=== PATIENT | female | born 1960 | race Caucasian/White ===

== ENCOUNTER 2017-09-20 06:00 | Day surgery (SDC) | payer OTHER ==
[~2017-09-20] VITALS: Ht 167.6 cm; Wt 70.8 kg
[~2017-09-20 06:00] MED LIST: ATENOLOL50 MG PO; CALCIUM500 M1 PO; IBUPROFEN800 MG PO; LEVOTHYROXINE75 MCG PO; MULTIVITAMINS1 EAC7 PO; NORCO 5-325 TA1 EACH PO
--- NOTE | 2017-09-20 09:29 | NUR ---
09/20/17 0929 Millicent Kong 0914 RESP EVEN AND UNLABORED. PT ASLEEP, VSS. 0922 PT WOKE UP REORIENTED TO PACU. DENINES NAUSEA AND PAIN.
--- NOTE | 2017-09-20 10:07 | NUR ---
LE 0950: PT RETURNED FROM RECOVERY WITH RN. PT DROWSY BUT RESPONDS TO VOICE. PT C/O BEING "SLIGHTLY NAUSEATED". PT C/O CRAMPING IN HER LOWER ABD AND DISCOMFORT FROM FISHMAN CATH. SRAVANTHI DC'D PER DR. AGUILA PROTOCOL. PT GIVEN ZOFRAN. WATER AT BEDSIDE. IN ROOM. NO FURTHER NEEDS AT THIS TIME, CALL LIGHT IN REACH.
--- NOTE | 2017-09-20 13:44 | NUR ---
LE 1240: JELLO DELIVERED FROM DIETARY. PT SITTING UP IN BED EATING AND DENIES NAUSEA. LE 1330: PT UP TO BR W/RN STANDBY. PT AMBULATES WELL AND DENIES DIZZINESS. PT VOIDS 150 ML DARK YELLOW URINE AND OOZING IS NOTED ONTO GOWN. UMBILICUS SITE APPEARS TO BE DRAINING AND IS REINFORCED W/GAUZE AND TAPE. PT DENIES NAUSEA AND STATES PAIN REMAINS 4/10. PT BACK IN BED AND MORE ICED WATER GIVEN. PT REPORTS "I WANT TO REST".
--- NOTE | 2017-09-20 14:22 | NUR ---
1414 UP TO BR VOIDS QS. AMB WELL. SMALL AMOUT BLEEDING PANTIES AND PAD PLACED. WANTS TO GET DRESSED.
--- NOTE | 2017-10-01 09:57 | OR ---
[facility] [address] [place], [place] [address] Signed DATE OF OPERATION: 09/20/2017 SURGEON: Radha Hanson MD BALANCE STAFF INSPECTOR: Dayron Whitten MD PREOPERATIVE DIAGNOSIS: Postmenopausal bleeding, recurrent simple endometrial hyperplasia. POSTOPERATIVE DIAGNOSIS: Postmenopausal bleeding, recurrent simple endometrial hyperplasia. Pending pathology. PROCEDURE: Total laparoscopic hysterectomy with bilateral salpingectomy and cystoscopy. ANESTHESIA: General ET. ESTIMATED BLOOD LOSS: 50 mL. DRAINS: Mccoy catheter. INDICATIONS AND FINDINGS: The patient is a 57-year-old female who has not had any bleeding for over two years when she presented with abnormal bleeding in the spring of this year. EMB was consistent with simple endometrial hyperplasia. She underwent treatment with progestins for three months with followup biopsy and ultrasound which were both negative and medications were then stopped. However, she had another episode of abnormal bleeding just before gi and again her EMB revealed simple hyperplasia. She was counseled during her options and she decided that she would prefer to undergo hysterectomy rather than repeat medication treatment. At the time of surgery, exam under anesthesia revealed a normal size uterus with no adnexal masses. At the time of laparoscopy, the pelvis was normal. DESCRIPTION OF PROCEDURE: The patient was prepped and draped in the dorsal lithotomy position. A weighted speculum was placed in the vagina and the anterior lip of the cervix was visualized and grasped Electronically Signed By: RADHA HANSON MD 10/01/17 0957 PATIENT NAME: LAKSHMI DAVIDSON OPERATIVE REPORT DATE OF : 64 PHYSICIAN: RADHA HANSON MD REPORT #: [id number] REPORT IS CONFIDENTIAL AND NOT TO BE RELEASED WITHOUT AUTHORIZATION [facility] [address] [place], [place] [address] Signed with a single-tooth tenaculum. The cavity sounded to 8 cm. The endocervical canal was then dilated with some difficulty and the VCare was then able to be placed. The balloon was inflated and the tenaculum and speculum removed. The cup was fitted over the cervix and a locking cup was fitted into place as well. Attention was then directed to the abdomen. The infraumbilical area was injected with 0.5% Marcaine plain and an incision made with a knife. Each layer was then serially elevated and incised until the fascia was opened and identified. Sutures of 0 Vicryl placed on each side as stay sutures. The peritoneum was opened bluntly and a Brian cannula was placed and tied into place. Placing the scope confirmed proper positioning. CO2 was then introduced into the abdomen. Secondary ports were placed at the level just below the umbilicus and fairly far laterally. These areas were transilluminated and injected with Marcaine. An incision was made with a knife and the trocars placed under direct vision. The left-sided port was a 5 mm port and the right-sided port was initially a Veress needle followed by the expanding port which was a 10. Following this, the pelvis was visualized and the planned operation appeared appropriate. The LigaSure [place] device was then used to serially coagulate and divide the patient's left utero-ovarian pedicle, left tube, and left round ligament. Following this, the anterior leaf of the peritoneum was incised allowing the bladder to drop down off the anterior cervix. The peritoneum was taken down posteriorly as well. Following this, the uterine vessels were skeletonized and coagulated multiple times, then divided. Further dissection was done both posterior and anteriorly such that the cup could be identified. Following this, attention was directed to the patient's right side and the same procedure was completed. The right utero-ovarian pedicle, right tube and right round ligament were serially coagulated and divided. The anterior leaf of the peritoneum was incised allowing the bladder to fall off completely anteriorly. Further dissection was done posteriorly on the peritoneum as well. The uterine vessels were then skeletonized and coagulated multiple times and divided. Further dissection was done both posteriorly and anteriorly such that the cup was easily felt and the area clean. The area was irrigated and good hemostasis was noted. At this point, the decision was made to proceed with removal of the specimen. The DeliverCareRxision device was used to separate the specimen from the cuff. Following this, the specimen was grasped and the specimen was pulled out vaginally. The vagina was then packed with a lap tape and a glove to allow the pneumoperitoneum to reaccumulate. Gloves were changed. Attention directed above again and the area irrigated and inspected and good hemostasis was noted. The cuff was then closed using the Endo Stitch. This was begun on the patient's right uterosacral ligament, taking care to incorporate the vaginal mucosa with each bite both posteriorly as well as anteriorly and this was run to the patient's left side and then back to the center. The stitch did break just prior to meeting at the center. A second suture using the same material was then used coming from the right uterosacral ligament across and back to the center again to be sure that the cuff would remain closed and hemostatic. Following this, the patient's left tube was removed as was the right and these specimens were removed through the 10 port. Additional cautery was needed on the patient's left side to ensure hemostasis. The Electronically Signed By: RADHA HANSON MD 10/01/17 0957 PATIENT NAME: LAKSHMI DAVIDSON OPERATIVE REPORT DATE OF : 64 PHYSICIAN: RADHA HANSON MD REPORT #: [id number] REPORT IS CONFIDENTIAL AND NOT TO BE RELEASED WITHOUT AUTHORIZATION [facility] [address] [place], [place] [address] Signed abdomen was then again copiously irrigated and inspected and appeared to be hemostatic. The gas was turned off and the pressure decreased and again good hemostasis was noted. The procedure was done. The abdominal portion was then completed. The instruments were removed from the abdomen after allowing as much CO2 as possible to escape. The fascial incision of the umbilicus was reidentified and closed with a running suture of 0 Vicryl. The skin incisions were closed with subcuticular sutures of 3-0 Vicryl Rapide. Attention was directed below and the lap tape was removed from the vagina and the Mccoy catheter removed. Cystoscopy was done using the 30-degree scope. The patient had received IV fluorescein. The bladder was seen to be without any injury. Fluorescein-stained urine was seen to freely egress from both of the ureteral orifices. Cystoscopy was then completed. The bladder drained and the Mccoy catheter replaced. All sponge and needle counts were correct. She tolerated the procedure well and was taken to the recovery room in good condition. MD VIVIANA Watson/GUIL /[id number] cc: [facility] Dayron Whitten MD Electronically Signed By: RADHA HANSON MD 10/01/17 0957 PATIENT NAME: LAKSHMI DAVIDSON OPERATIVE REPORT DATE OF : 64 PHYSICIAN: RADHA HANSON MD REPORT #: [id number] REPORT IS CONFIDENTIAL AND NOT TO BE RELEASED WITHOUT AUTHORIZATION
== END 2017-09-20 14:45 | disposition home or self-care (01) ==
LOC: DS 06:00
PROVIDERS: Obstetrics & Gynecology
PROC: 0UT94ZZ Resection of Uterus, Percutaneous Endoscopic Approach (ICD-10-PCS; principal; 2017-09-20 06:45)
PROC: 0UT74ZZ Resection of Bilateral Fallopian Tubes, Percutaneous Endoscopic Approach (ICD-10-PCS; 2017-09-20 06:45)
DX: D25.9 Leiomyoma of uterus, unspecified (principal); N83.8 Other noninflammatory disorders of ovary, fallopian tube and broad ligament; K21.9 Gastro-esophageal reflux disease without esophagitis; E03.9 Hypothyroidism, unspecified; Z79.899 Other long term (current) drug therapy; Z79.52 Long term (current) use of systemic steroids; Z88.1 Allergy status to other antibiotic agents; Z88.8 Allergy status to other drugs, medicaments and biological substances; Z90.49 Acquired absence of other specified parts of digestive tract; Z90.89 Acquired absence of other organs; Z98.890 Other specified postprocedural states
CPT/HCPCS: 00944; J0694; J1100; J1644; J1885; J2250; J2270; J2370; J2405; J2550; J2704; J2765; J3010; J7120